=== PATIENT | female | born 1975 | race Caucasian/White ===

== ENCOUNTER → 2021-03-25 | Outpatient (CLI) | payer BC ==
--- NOTE | 2021-03-25 14:22 | RAD ---
EXAM: Chest, 2 views. HISTORY: Cough. COMPARISON: None. FINDINGS: 2 views of the chest are obtained. There is no infiltrate, pleural effusion or pneumothorax . The heart is normal in size. There is callus formation surrounding a suspected healed or healing an terior right sixth rib fracture. IMPRESSION: No acute pulmonary finding. Electronically signed by: Karen Welch MD (03/25/2021 2:20 PM) [id number]
== END ==
LOC: RAD 13:50
PROVIDERS: ATTEND Physician Assistant Medical
DX: R05.9 Cough, unspecified (principal)
CPT/HCPCS: 71046